=== PATIENT | male | born 1945 | race Caucasian/White ===

== ENCOUNTER 2017-12-08 14:36 | Emergency (ER) | payer OTHER, MEDICARE ==
[~2017-12-08] VITALS: Ht 165.1 cm; Wt 58.1 kg
[~2017-12-08 14:36] MED LIST: CODEINE SULFATE30 M1 PO; CYCLOBENZAPRINE10 M1 PO; CYCLOBENZAPRINE5 M2 PO; FIORINAL 50-321 EACH PO; NAPROXEN500 M2 PO; TYLENOL #31 TAB PO
[2017-12-08 14:41] VITALS: BP 186/91
--- NOTE | 2017-12-08 15:43 | ED THROAT/DENTAL COMPLAINT ---
History of Present Illness General Chief Complaint: Sore Throat, Dental Pain Stated Complaint: DENTAL PAIN ON LEFT SIDE Source: patient, old records Exam Limitations: no limitations Allergies Coded Allergies: No Known Allergies (10/14/17) Reconcile Medications Acetaminophen With Codeine (Acetaminophen-Cod #4 Tablet) 300 MG-60 MG TABLET 1 TAB PO BID PAIN (Reported) Aspirin (Ecotrin*) 325 MG TABLET.DR 1 TAB PO DAILY HEART/BLOOD (Reported) Cholecalciferol (Vitamin D3) (Vitamin D) 2,000 UNIT TABLET 2 TAB PO DAILY SUPPLEMENT (Reported) Diazepam 10 MG TABLET 1 TAB PO BID PRN ANXIETY (Reported) diphenhydrAMINE HCl (Benadryl) 25 MG CAP 1 CAP PO PRN HAYFEVER (Reported) Naproxen (Naprosyn) 500 MG TABLET 1 TAB PO BID PRN PAIN Ondansetron (Zofran Odt) 4 MG TAB.RAPDIS 1 TAB SL TID PRN NAUSEA Polyethylene Glycol 3350 17 GRAM POWD.PACK 1 PAC PO DAILY GI (Reported) Triage Note: PT TO ED C/P PAIN S/P TOOTH EXTRACTION, LEFT LOWER JAW ON MONDAY. HAS BEEN TAKING 800 MG IBUPROFIN WITH NO RELIEF. RAN OUT OF TYLENOL #4'S THAT HE HAD FOR CLUSTER HEADACHES. "I USED TO GET 150 A MONTH, THEN THEY CUT ME TO 60 A MONTH" "THE LAST TIME THEY ONLY GAVE ME 30" Triage Nurses Notes Reviewed? yes Onset: Abrupt Duration: week(s): (1), constant, continues in ED, getting worse Timing: single episode today Injury Environment: home Severity: moderate, severe Severity Numbers: 7 No Modifying Factors: none HPI: 72-year-old male past medical history of headaches on pain management, hypertension and dental pain presents for evaluation of pain to his left lower jaw. Patient states that 2 days ago he had surgery to extract 2 molars from the left lower jaw. He says that he had been having pain before that for about a week. Since the teeth were removed he states that his pain has gotten much more severe. The pain is located in the left jaw and radiates into his face and head. It is worse with touching the area and movement of the jaw. He is able to eat and drink without difficulty no drooling or fevers. Patient states that he does not have any pain medicine at home. He states that his pain management team has been tapering down his Tylenol fours and that his dentist only gave him ibuprofen 800. He states that his pain is a 10 out of 10. (Roosevelt Burleson) Vital Signs & Intake/Output Vital Signs & Intake/Output Vital Signs Date Time Temp Pulse Resp B/P B/P Pulse O2 O2 Flow FiO2 Mean Ox Delivery Rate 12/08 1441 97.0 96 18 186/91 98 Room Air (Arpita VICKERS,Hilario Estes) Past History Travel History Traveled to [place] past 21 day No Medical History Any Pertinent Medical History? see below for history Neurological: CLUSTER HEADACHES ON PAIN MANAGEMENT EENT: NONE Cardiovascular: hypertension Respiratory: NONE Gastrointestinal: NONE Hepatic: NONE Renal: NONE Musculoskeletal: NONE Psychiatric: anxiety, PTSD Endocrine: NONE Blood Disorders: NONE Cancer(s): NONE GROVE WORKER/Reproductive: NONE Surgical History Surgical History: N Psychosocial History What is your primary language Polish Tobacco Use: Current Daily Use Daily Tobacco Use Amount/Type: => 5 Cigarettes daily ETOH Use: denies use Illicit Drug Use: denies illicit drug use Family History Hx Contributory? No (Roosevelt Burleson) Review of Systems Review of Systems Constitutional: Reports: no symptoms. EENTM: Reports: mouth pain, tooth pain. Respiratory: Reports: no symptoms. Cardiovascular: Reports: no symptoms. GI: Reports: no symptoms. Genitourinary: Reports: no symptoms. Musculoskeletal: Reports: no symptoms. Skin: Reports: no symptoms. Neurological/Psychological: Reports: no symptoms. Hematologic/Endocrine: Reports: no symptoms. Immunologic/Allergic: Reports: no symptoms. All Other Systems: Reviewed and Negative (Roosevelt Burleson) Physical Exam Physical Exam General Appearance: well developed/nourished, no apparent distress, alert, awake Head: atraumatic, normal appearance Eyes: Bilateral: normal appearance, PERRL, EOMI. Ears: Bilateral: canal normal, Tympanic normal. Nose: normal inspection Mouth/Throat: there are multiple rotting teeth recently in the mouth. There are 2 extracted molars in the left lower jaw with sutures in place. There is no erythema or discharge. No trismus no swelling no focal fluctuant areas. No submandibular lymphadenopathy. No swelling of the facial maxillary area. Patient is handling secretions. Neck: normal inspection, supple, full range of motion Cardiovascular/Respiratory: normal breath sounds, normal peripheral pulses, regular rate/rhythm, no respiratory distress Back: normal inspection, normal range of motion Neurologic/Psych: no motor/sensory deficits, awake, alert, oriented x 3 Skin: intact, normal color, warm/dry Core Measures ACS in differential dx? No Sepsis Present: No Sepsis Focused Exam Completed? No (Roosevelt Burleson) Progress Differential Diagnosis: aspirated tooth, carious tooth, Ludwigs angina, odontogenic abscess, riley-tonsillar abscess, stomatitis/gingivitis, strep pharyngitis, tooth fracture Plan of Care: Patient seen and evaluated. He is seen with secretions is no evidence of infection at the operative site. Patient has been seen here multiple times for refills of his pain medications recently. The review of his recent prescriptions shows that he was prescribed Vicodin 2 days ago from his dentist. He was not upfront about this initially. Patient states that he took too much of his pain medication that he was prescribed by pain management because he was being cut down and that he was having worsening pain. Advised patient that we will not be able to supply him with narcotics. He'll be given a prescription for naproxen. He has gabapentin at home which makes him nauseous and is requesting Zofran for. Advised him to rest apply ice to plenty of fluids Orajel. Contact oral surgeon as soon as possible for follow-up. Patient is nontoxic-appearing and agrees the plan. Case discussed with Dr. Palm he agrees. (Roosevelt Burleson) Departure Departure Disposition: HOME OR SELF CARE Condition: Stable Clinical Impression Primary Impression: Pain, dental Referrals: Coco VICKERS,M[place] (PCP/Family) Additional Instructions: Rest and drink plenty of fluids. Naproxen every 12 hours with food as needed for pain. He can also use Tylenol every 6 hours as needed. Zofran to be used as needed for nausea. Follow-up with your oral surgeon as soon as possible. Monitor your symptoms return with any concerns. Departure Forms: Customer Survey General Discharge Information Prescriptions: Current Visit Scripts Naproxen (Naprosyn) 1 TAB PO BID PRN PAIN #30 TAB Ondansetron (Zofran Odt) 1 TAB SL TID PRN NAUSEA #15 TAB (Roosevelt Burleson) PA/REHAB NURSING TECH Co-Sign Statement Statement: ED Attending supervision documentation- [X] I saw and evaluated the patient. I have also reviewed all the pertinent lab results and diagnostic results. I agree with the findings and the plan of care as documented in the PA's/REHAB NURSING TECH's documentation. Patient presents for evaluation of severe left jaw pain status post tooth extraction 2 days ago. In addition patient was complaining of severe cluster headache pain. Physical examination reveals a nonfocal neurological examination and no apparent soft tissue swelling or ecchymoses over the left mandible. [] I have reviewed the ED Record and agree with the PA's/REHAB NURSING TECH's documentation. [] Additions or exceptions (if any) to the PAs/REHAB NURSING TECH's note and plan are summarized below: [] (Arpita VICKERS,Hilario Estes)
[2017-12-08] MEDS ORDERED: DIAZEPAM10 M1 PO (16:05)
[2017-12-08] MEDS ORDERED: ACETAMINOPHEN-1 EAC2 PO (16:05)
[2017-12-08] MEDS ORDERED: ASPIRIN EC325 M2 PO (16:06)
[2017-12-08] MEDS ORDERED: VITAMIN D2000 UNI1 PO (16:06)
[2017-12-08] MEDS ORDERED: POLYETHYLENE GL17 GM PO (16:06)
[2017-12-08] MEDS ORDERED: BENADRYL25 MG PO (16:07)
[2017-12-08] MEDS ORDERED: ZOFRAN ODT4 M1 SL (17:13)
[2017-12-08] MEDS ORDERED: NAPROSYN500 M1 PO (17:13)
== END 2017-12-08 17:22 ==
LOC: ERH 14:36
DX: K08.89 Other specified disorders of teeth and supporting structures (principal)